=== PATIENT | male | born 1980 | race Two or more races ===

== ENCOUNTER 2017-05-24 11:38 | Day surgery (SDC) | payer OTHER ==
[2017-05-18 11:48] VITALS: BMI 27.4
[~2017-05-24 11:38] MED LIST: ACETAMINOPHEN TAB 500 MG TAB PO ONE; DEXAMETHASONE SOD PHOSPHATE 10 MG/ML 1 ML VIAL IV ONE; HYDROmorphone 0.5 MG/0.5 ML SYRINGE IVP PRN; LACTATED RINGERS 1,000 ML IV SCH; LIDOCAINE 1% 20 ML VIAL (10MG/ML) FOR IV START INTRADERMA PRN; MELOXICAM 7.5 MG TAB PO ONE; MIDAZOLAM 2 MG/2 ML VIAL IV PRN; ONDANSETRON 4 MG/2 ML VIAL IVP ONE; SCOPOLAMINE 1.5MG/72HR PATCH TRANSDERM ONE; ceFAZolin 2 GM in SODIUM CHLORIDE 0.9% 100 ML IVPB ONE
[2017-05-24] MEDS ORDERED: ROCURONIUM BROMIDE 10 MG/ML 10 ML VIAL IV ONE (12:59)
[2017-05-24] MEDS ORDERED: PROPOFOL 10 MG/ML 20 ML VIAL IV ONE (12:59)
[2017-05-24] MEDS ORDERED: LIDOCAINE 1% INJ 10MG/ML (20 ML MDV) ONE (12:59)
[2017-05-24] MEDS ORDERED: SUCCINYLCHOLINE CHLORIDE 100 MG/5 ML SYR IV ONE (12:59)
[2017-05-24] MEDS ORDERED: MIDAZOLAM 2 MG/2 ML VIAL ONE (12:59)
[2017-05-24] MEDS ORDERED: GLYCOPYRROLATE 0.2 MG/ML 2 ML VIAL ONE (12:59)
[2017-05-24] MEDS ORDERED: NEOSTIGMINE 1 MG/ML 10 ML VIAL ONE (12:59)
[2017-05-24] MEDS ORDERED: fentaNYL (PF) 50 MCG/ML 2 ML AMP ONE (12:59)
[2017-05-24] MEDS ORDERED: ceFAZolin 1,000 MG in SODIUM CHLORIDE 0.9% 1,000 ML IRRIGATION ONE (13:32)
[2017-05-24] MEDS ORDERED: LACTATED RINGERS 1,000 ML IV ONE (14:05)
[2017-05-24 14:47] VITALS: TEMP 97
[2017-05-24 15:06] VITALS: RESP 18
[2017-05-24] MEDS ORDERED: HYDROcodone/APAP 10-325MG 1 EACH TAB PO ONE (15:40)
[2017-05-24 16:49] VITALS: BP 152/78; PULSE 84
--- NOTE | 2017-06-12 12:02 | P.OP ---
Date of Procedure: 05/24/17 Procedure(s) Performed: clavicle ORIF left no home health assistant 100 ebl acumed plate with 6 screws 2 interfrag screws no bone graft no complications PREOPERATIVE DIAGNOSES: 1. Left clavicle midshaft displaced fracture with butterfly fragment POSTOPERATIVE DIAGNOSES: 1. Left clavicle midshaft displaced fracture with butterfly fragment PROCEDURES PERFORMED: 1. Left clavicle open reduction and internal fixation ANESTHESIA: medical record librarians teacher: Noreen Cook PA-C (assistance with: Patient positioning, retraction, exposure, hemostasis, excision, irrigation, closure, dressing) COMPLICATIONS: None ESTIMATED BLOOD LOSS: 50 cc TOURNIQUET: Not used DISPOSITION: To post-anesthesia care unit INDICATIONS: Kirby is a 37-year-old male with a history of left clavicle fracture approximately 3 weeks ago. The fracture is about 20 mm displaced superior to inferior. After much discussion of conservative versus surgical options, the patient wishes to proceed with surgical fixation. I have explained the details of this surgery thoroughly and also explained the potential risks and complications. These are inclusive of, but not limited to: bleeding, infection, scarring, discomfort, blood vessel and nerve damage, stiffness, weakness, need for further surgery, failure to relieve symptoms, persistence or worsening of problems, malunion, nonunion, hardware irritation, numbness inferior to the incision, , and other risks. The patient is aware of these risks and agrees to proceed with surgery. The consent form has been signed. PROCEDURE: Appropriate consent was obtained and the patient was transferred to the operating room and placed in the supine position. General anesthesia was initiated and after confirmation of such anesthesia, the patient was carefully placed in the beach chair position with a rolled towel beneath the left scapula. The head was carefully secured with padding and Coban wrap. Neck position was neutral. Pressure points were adequately padded. The patients right upper chest and arm were prepped and draped in the usual aseptic fashion using ChloraPrep. Ioban drape was used for skin protection and he received intravenous antibiotics approximately 20 minutes prior to the incision. Time out was called, confirming patient identity, side, procedure, and administration of antibiotics. Incision was created using a 15 blade along the anterior aspect of the left clavicle, centered over the fracture site. The length of the incision was approximately 12 cm. Careful dissection was performed using dissecting scissors through the subcutaneous tissue to detect and protect the superficial superclavicular nerves, as much as possible. The trapezio-pectoral fascia was then incised using cautery. Hemostasis was meticulously maintained throughout the operation using Bovie electrocautery. Full thickness fascial flaps were created, exposing the fracture site. Hematoma and debris were removed as necessary to fully expose the fracture and allow for anatomic reduction. The fracture was minimally comminuted with a sizable butterfly fragment. This butterfly fragment was exposed, mobilized, and anatomically provisionally fixed to the distal fragment using a bone clamp. This fragment was then fixed securely using 2 3.5 mm bicortical screws placed in lag fashion. This allowed the main fragments to be reduced anatomically and held with a bone clamp. The main proximal and distal fragments were assessed for alignment and once an acceptable alignment had and decided upon, a precontoured plate was placed over the fracture fragments and the plate was used to align the major proximal and distal fragments adequately. The reduction was held with a plate clamp on each side of the fracture once the proper plate was selected. The plate selected was a multi-hole locking/compression plate from [employer],. Once the plate was secured, the screw holes were drilled, sized, and filled with 3.5 mm cortical screws with bicortical purchase. The screws were placed with non-compression technique. Final hand-tightening of the screws was performed and it was noted that the fracture remained anatomically reduced and was stable. Thorough irrigation was performed using antibiotic containing solution and final hemostasis was achieved. Meticulous closure of the fascia over the plate was then performed, with 0 Vicryl suture. Subcutaneous closure was with 3-0 Vicryl and skin cosmetic closure with running 3-0 stratafix subcuticular followed by cyanoacrylate topical skin incision treatment. The patient tolerated the procedure well. There was 50 cc blood loss. Wound was dressed with sterile bandage and arm was placed in a sling. The patient was transferred to recovery room in stable condition. Sponge and needle counts were correct.
--- NOTE | 2017-06-14 07:48 | CDI ---
Dear Dr. Greg Miller, There are some inconsistencies in the documentation on this encounter. It is not clear if the patient's fracture and repair of fracture are on the left side or the right side of the body. Please issue an addendum to your operative report stating if the fracture is on the left or right and if the repair is on the left or right. Thank you! TAM Jenkins
== END 2017-05-24 16:52 | disposition home or self-care (01) ==
LOC: OR 11:38
PROVIDERS: ATTEND Orthopaedic Surgery
DX: S42.022A Displaced fracture of shaft of left clavicle, initial encounter for closed fracture (principal); V86.99XA Unspecified occupant of other special all-terrain or other off-road motor vehicle injured in nontraffic accident, initial encounter; E78.5 Hyperlipidemia, unspecified; Z88.0 Allergy status to penicillin; Z87.891 Personal history of nicotine dependence
CPT/HCPCS: 23515; C1713; J2250; J1100; J2710; J0690 ×2; J2405; J2001; J3010; J0330; J2704